=== PATIENT | male | born 1945 | race Caucasian/White ===

== ENCOUNTER → 2017-07-07 | Outpatient (CLI) | payer MEDICARE, BC | END | disposition home or self-care (01) | LOC: SURG 13:10 | PROVIDERS: ATTEND Anesthesiology | DX: M54.16 Radiculopathy, lumbar region (principal); I10 Essential (primary) hypertension; M19.91 Primary osteoarthritis, unspecified site; N42.9 Disorder of prostate, unspecified; Z72.89 Other problems related to lifestyle | CPT/HCPCS: 64483 ==

== ENCOUNTER → 2017-08-04 | Outpatient (CLI) | payer MEDICARE, BC ==
[~2017-08-04] MED LIST: 0.9 % SODIUM CHLORIDE 50 ML VIAL. IJ ONE; BUPIVACAINE MPF 0.25% 10 ML VIAL. ONE; DEXAMETHASONE SOD PHOS 20 MG/5 ML VIAL. ONE; LIDOCAINE 1% PF 30 ML VIAL. ONE
== END | disposition home or self-care (01) ==
LOC: SURG 12:56
PROVIDERS: ATTEND Anesthesiology
DX: M54.16 Radiculopathy, lumbar region (principal); Z72.89 Other problems related to lifestyle
CPT/HCPCS: 64483; J1100; J2001; J3490; 64484

== ENCOUNTER → 2017-09-01 | Outpatient (CLI) | payer MEDICARE, BC ==
[~2017-09-01] MED LIST changes: -0.9 % SODIUM CHLORIDE 50 ML VIAL. IJ ONE; -DEXAMETHASONE SOD PHOS 20 MG/5 ML VIAL. ONE; +methylPREDNISolone ACETATE 40 MG/ML VIAL. ONE
== END | disposition home or self-care (01) ==
LOC: SURG 13:41
PROVIDERS: ATTEND Anesthesiology
DX: M47.816 Spondylosis without myelopathy or radiculopathy, lumbar region (principal)
CPT/HCPCS: 64493; 64494; J1030; J2001; J3490

== ENCOUNTER → 2017-09-29 | Outpatient (CLI) | payer MEDICARE, BC | END | disposition home or self-care (01) | LOC: SURG 12:11 | PROVIDERS: ATTEND Anesthesiology | DX: M47.816 Spondylosis without myelopathy or radiculopathy, lumbar region (principal); M19.90 Unspecified osteoarthritis, unspecified site; K21.9 Gastro-esophageal reflux disease without esophagitis; I10 Essential (primary) hypertension; Z72.89 Other problems related to lifestyle | CPT/HCPCS: 99214 ==

== ENCOUNTER 2021-12-21 23:54 | Emergency (ER) | payer MEDICARE, BC | END 2021-12-22 00:27 | disposition left against medical advice (07) | LOC: ER 23:54 | DX: R39.198 Other difficulties with micturition (principal); R10.9 Unspecified abdominal pain; Z53.21 Procedure and treatment not carried out due to patient leaving prior to being seen by health care provider ==